=== PATIENT | male | born 1995 | race Caucasian/White ===

== ENCOUNTER 2022-01-27 03:37 | Emergency (ER) | payer SELFPAY ==
[~2022-01-27] VITALS: Ht 170.2 cm; Wt 72.6 kg
[2022-01-27 03:48] VITALS: BP 134/70
--- NOTE | 2022-01-27 03:49 | NUR ---
PT BIBFRIEND C/O LAC UNDER LEFT ARMPIT S/P CUT FROM FENCE X 3 HRS. PT A/O X 4, RR EVEN AND UNLABORED, NO SOB NOTED. PT TO ER BED 2. NO ACUTE DISTRESS NOTED. PT CONNECTED TO MONITORS.
--- NOTE | 2022-01-27 03:51 | NUR ---
PATIENT HAS A DEEP AVULSED WOUND ON THE AXILLA AREA APPROX 5CM IN LENGTHx 2.5CM DEEP. MD SUGGESTED CXR AND CT SCAN. PATIENT OK WITH CXR BUT NOT CT SCAN. PATIENT UNDERSTOOD THE RISK AND BENEFIT OF DOING CT SCAN. PACKING OF WOUND DONE. WOUND FOR IRRIGATION AND SUTURING. VITALS CHECKED.
[2022-01-27] MEDS ORDERED: LIDOCAINE 1%-EPI 1:100,000 20 ML VIAL ONE (03:53)
[2022-01-27] MEDS ORDERED: LIDOCAINE 1%-EPI 1:100,000 20 ML VIAL TP ONE (04:00)
--- NOTE | 2022-01-27 04:05 | NUR ---
CXR AT BEDSIDE
--- NOTE | 2022-01-27 04:28 | NUR ---
SUTURING OF WOUND DONE BY DR RAY. 12 SURGICAL STITCHES USING ETHILON 4-0. DRESSING APPLIED.
--- NOTE | 2022-01-27 04:31 | NUR ---
PATIENT ELOPED AFTER SUTURING OF WOUND. MD PINK
== END 2022-01-27 05:10 | disposition left against medical advice (07) ==
LOC: ER 03:55
DX: S41.112A Laceration without foreign body of left upper arm, initial encounter (principal); J45.909 Unspecified asthma, uncomplicated; Z60.2 Problems related to living alone; W26.8XXA Contact with other sharp object(s), not elsewhere classified, initial encounter; Y93.89 Activity, other specified; Y92.89 Other specified places as the place of occurrence of the external cause; Y99.8 Other external cause status
CPT/HCPCS: 99283; 71045; 12002; J3490